=== PATIENT | female | born 1985 | race Caucasian/White ===

== ENCOUNTER 2020-01-18 20:25 | Inpatient (IN) | payer OTHER, SELFPAY ==
[2020-01-18] VITALS (23 sets, daily range): BP systolic 100–184; BP diastolic 55–110; PULSE 75–180; RESP 16–18; TEMP 35.8–36.9; O2SAT 84–99; BMI 44.6
[2020-01-18] MEDS: Lactated Ringers 1,000 ML 999 ML IV (21:00)
--- NOTE | 2020-01-18 21:37 | HP.PCM_ITS ---
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 Patient has had elevated blood pressures at the office where she received her ultrasound today but the sharepoint application developer states that she had normal pressures throughout her . She delivered her last one with preeclampsia and had a primary C- section for nonreassuring heart tones at that time. All previous vaginal deliveries prior to that. She has had intermittent headache and epigastric pain in the last couple of days. Ultrasound today showed fetus measuring 38 weeks 4 days and fluid level of 6 cm but with cord seen in all pockets. Minimal movement was seen on ultrasound today. The sharepoint application developer contacted my office at 5 PM and she was instructed to immediately bring the patient to the hospital for delivery due to severely elevated blood pressures and the decreased movement seen on ultrasound and oligohydramnios. Medical History: Medical History (Last Updated 01/18/20 @ 21:[address] Riri Cagle MD) delivery delivered O82 Preeclampsia O14.90 Allergies No Known Allergies Allergy (Verified 01/18/20 21:18) Alcohol: None Number of Fetus(es): 1 NST - FHR Rate Baby A Baseline: 140-150 Variability:: Minimal, Moderate Accelerations:: None Decelerations:: Early, Prolonged NST Reactive:: Non-Reactive FHR Category:: Category II Uterine Activity:: irregular History Past Pregnancies: Past Pregnancies 5 previous term 1 term secondary to NRFHTs and preeclampsia Expected Delivery Method: Repeat Section Review of Systems Constitutional: Denies: Fever, Malaise Eyes: Denies: Blurred vision, Vision Change HEENT: Reports: Head Aches. Denies: Visual Changes Cardiovascular: Denies: Chest Pain, Palpitations Respiratory: Denies: Cough, Shortness of Breath, Wheezing Gastrointestinal: Reports: Abdominal Pain, Nausea. Denies: Diarrhea, Vomiting Genitourinary: Denies: Dysuria, Hematuria Gynecological: Denies: Vaginal bleeding, Vaginal discharge Musculoskeletal: Denies: Joint Pain, Muscle pain Skin: Denies: Lesions, Rash Neurological: Denies: Blurred vision, Focal weakness, Headaches Psychiatric: Denies: Anxiety, Depression Endocrine: Denies: Heat/ Cold Intolerance Hematologic/ Lymphatic: Denies: Easy Bruising, Easy Bleeding Physical Exam Vitals: Vital Signs Temp Pulse BP Pulse Ox 98.5 F 96 184/110 H 97 01/18/20 21:35 01/18/20 21:35 01/18/20 21:28 01/18/20 21:35 General: Alert, Cooperative, No apparent distress HEENT: Atraumatic, Normocephalic. Negative for: Thyromegaly, Lymphadenopathy Cardiovascular: Regular rate Lungs: Normal air movement Abdomen: Soft, Non Tender, Gravid Neurological: Deep Tendon Reflexes 2+/4 and Symmetrical, Neuro grossly intact. Negative for: Clonus MATH AND SCIENCE DIVISION CHAIR: Normal external genitalia. Negative for: Vulvar lesions Estimated gestational size: Small for gestational age - if 42-43 weeks Presentation: Cephalic Cervix Dilation (cm): 0 Station: -3 Effacement (%): 0 Assessment/Plan All Active Problems Preeclampsia, severe (Acute) Post-term (Acute) Oligohydramnios (Acute) Previous delivery affecting (Acute) This is a 34 year-old, at 43 weeks gestational age presents with preeclampsia with severe features. start hypertensive protocol and magnesium sulfate, preeclampsia panel and no care labs drawn and sent. Counseled the patient regarding mode of delivery recommend repeat low transverse due to remote from delivery and unfavorable cervix. Category 2 heart rate tracing. Patient and agreeable no further questions.
[2020-01-18] MEDS: Sodium Citrate/Citric Acid 30 ML UDC PO (21:38)
[2020-01-18 21:45] LABS: Mucous, Urine 0 SEEN /hpf (<or=2+); White Blood Cells 0 SEEN /hpf (0-5)
[2020-01-18] MEDS: Magnesium Sulfate 4gm/100mL 4 GM/100 ML IV.SOLN. IV (21:47)
[2020-01-18 21:50] LABS: Hematocrit 39.6 % (37-47); Hemoglobin 13.6 g/dL (12.0-15.0); Mean Corp Hgb Conc 34.3 g/dL (32-36); Mean Corpuscular Hgb 30.9 pg (27.0-32.0); Mean Platelet Vol. 10.4 fl (6.2-12.0); Platelet Count 194 K/mm3 (150-450); RBC Distribution Width CV 13.7 % (11.6-14.6); RBC Distribution Width SD 44.8 fl (35.1-43.9); White Blood Count 11.8 K/mm3 (4.4-11.0)
[2020-01-18 21:51] LABS: Color, Urine Yellow (Yellow); Glucose, Dipstick Normal (Normal); Ketone-Dipstick 5 mg/dl (Negative); Leukocyte Esterase-Dipstick Negative /ul (Negative); Nitrite-Dipstick Negative (Negative); Occult Blood-Urine Negative /ul (Negative); Protein-Dipstick Negative (Negative); Specific Gravity, Urine 1.015 (1.002-1.030); Urine Bilirubin Dipstick Negative (Negative); Urine Clarity Sl. Cloudy (Clear); Urine Urobilinogen Normal (Normal); Urine pH 6.5 (5.0 - 8.0)
[2020-01-18] MEDS: Cefazolin 2 GM in 0.9% Normal Saline 100 ML IV (21:58)
[2020-01-18 22:01] LABS: Squamous Epithelial Cells - UA 0-5 SEEN /hpf (5-10)
[2020-01-18 22:02] LABS: Prothrombin Time (Protime)PT. 13.3 SECONDS (11.7-14.9)
[2020-01-18 22:03] LABS: AST(SGOT) 12 U/L (15-37); Alanine Aminotransfer ALT/SGPT 18 U/L (13-56); Creatinine, Serum 0.61 mg/dL (0.55-1.02); EST Glomerular Filtration Rate 120 mL/min (>60); Est Glom Filt Rate - Afr Amer 145 mL/min (>60); Estimated Creatinine Clearance 109.52 ml/min; Partial Thromboplast Time 27.4 Seconds (24.1-36.2); Uric Acid 3.3 mg/dL (2.6-6.0)
[2020-01-18 22:04] LABS: Bacteria RARE /hpf (None Seen); Red Blood Cells-Urine 0-5 SEEN /hpf (0-5); Yeast-Urine RARE /hpf (None Seen)
[2020-01-18] MEDS: Magnesium Sulfate 4gm/100mL 2 GM/50 ML IV.SOLN. IV (22:08)
[2020-01-18 22:11] LABS: Protein, Urine (Random) 10.1 mg/dL (<11.9); Protein:Creat Ratio 152 mg/g CRE (0-200)
[2020-01-18 22:12] LABS: Amphetamine Urine VISTA NEGATIVE (<1000 ng/mL); Barbiturate Urine VISTA NEGATIVE (< 200 ng/mL); Benzodiazepine Urine VISTA NEGATIVE (< 200 ng/mL); Cocaine Urine VISTA NEGATIVE (< 300 ng/mL); Ecstacy Urine VISTA NEGATIVE (< 500 ng/mL); Methadone Urine VISTA NEGATIVE (< 300 ng/mL); PCP Urine VISTA NEGATIVE (< 25 ng/mL); THC Urine VISTA NEGATIVE (< 50 ng/mL); Vista UDS pH Range 6
[2020-01-18] MEDS: Magnesium Sulfate 20 GM/500 ML BAG IV (22:19)
--- NOTE | 2020-01-18 22:46 | PCM.OPRPT ---
Problem List (1) Preeclampsia, severe Status: Acute (2) Post-term Status: Acute (3) Oligohydramnios Status: Acute (4) Previous delivery affecting Status: Acute Delivery Classification: DARINEL Final MEGHANA: 12/26/19 Gestational age: 43 Weeks and 2 Days measurement and verification engineer: Gali Garza Type of Anesthesia:: Spinal Special Medications: none Implants Used: none Date of Procedure: 01/18/20 Pre-Operative Diagnosis: preeclampsia with severe features postdates previous Post-Operative Diagnosis: same Description of Procedure: Spinal anesthesia was placed without difficulty. Cazares catheter was placed. The patient was placed in the dorsal supine position with leftward tilt. Patient was prepped and draped in the normal sterile fashion. Pfannenstiel skin incision was made with the scalpel and carried through to the underlying layer of fascia with the scalpel. Fascia was nicked in the midline and the incision extended laterally. The rectus bellies were dissected off superiorly and inferiorly with out complication both sharply and bluntly. The peritoneum was entered digitally. The incision was stretched and a low transverse uterine incision was made with the scalpel. The infant's head was delivered atraumatically followed by the anterior and posterior shoulders without complication the rest of the infant delivered. The cord was clamped and cut and the was handed off to awaiting nurse. The placenta was delivered spontaneously immediately following and was noted to be intact and have a three-vessel cord. The uterus was exteriorized cleared of all clots and debris, and the incision was closed in a double layer closure using #1 Monocryl. The ovaries and fallopian tubes were noted to be within normal limits. The uterus was returned to the maternal abdomen and gutters were cleared of all clots and debris. The peritoneum was closed with 3-0 Monocryl in a running fashion. Gloves were changed prior to fascial closure. Fascia was closed with 0 PDS in a running fashion. Subcutaneous tissue was copiously irrigated and the skin was closed with 3-0 Monocryl in a subcuticular fashion. Mepilex dressing was applied without complication. Patient was taken to recovery in stable condition. It was discussed with the patient that based on the clinical information obtained during this encounter, combined with her history, at this time I would recommend or vaginal for future deliveries if further pregnancies are desired. Amniotic Membrane Rupture Type: Artificial Amniotic Fluid Description: Clear Placenta Disposition: [facility] Drain: Cazares to straight drain Fluids Replaced: crystalloid Cord Entanglement: None Cord Vessel Description: 3 Vessels Esitmated Blood Loss (ml): 700 Gender: Male Delayed cord clamping: Yes Antibiotic Given: Ancef 2 grams IV x1 Complications: None - Admit VTE Documentation VTE Present on Admission: No VTE Mechan Device Prophylaxis: SCD's Multi Select Codes - Urinary/Genital Urinary/Genital CPT Codes: 98341 delivery+PP Care(MEMO)
[2020-01-18 22:47] LABS: Group B Strep DNA By PCR Negative (Negative); Internal Control PASS; Probe Check PASS; Specimen Processing Control PASS
[2020-01-18] MEDS: Oxytocin 30 units/NS 500 ml 30 UNITS/500 ML IV.SOLN 167 UNITS IV (23:15)
[2020-01-18] MEDS: miSOPROStol 200 MCG Tablet 1000 MCG RECTAL (23:18)
--- NOTE | 2020-01-18 23:47 | NURSING ---
2318 Moderate amts of lochia noted to peripad upon fundal check, orange sized clot expressed, into room, completed VE and expressed a couple small clots. Provider gave rectal cytotec, plan at this time is to continue with mag sulfate for 24 hours post op, pt to be on fluid restriction of 150cc/hr total PO and IV after recovery pitocin infused.
[2020-01-18 23:49] LABS: HIV - WCH Non-Reactive (Nonreactive); Hepatitis B Surface Antigen Non-Reactive (Nonreactive); Hepatitis C Antibody Non-Reactive (Nonreactive)
[2020-01-19] VITALS (62 sets, daily range): BP systolic 101–184; BP diastolic 54–110; PULSE 69–103; RESP 15–18; TEMP 35.8–36.8; O2SAT 92–100
[2020-01-19 00:08] LABS: Chlamydia Trachomatis by PCR Negative (Negative); Neisserai gonorrhoeae by PCR Negative (Negative); Probe Check PASS; Sample Adequacy Control PASS; Specimen Processing Control PASS
--- NOTE | 2020-01-19 00:13 | NURSING ---
called by this RN, updated on lochia and peripads weighed 563 ml since back in room from OR, vitals signs reviewed with provider. orders to send H/H, TXA, and hemabate. RN to call provider if Hemoglobin less then 10
[2020-01-19] MEDS: 0.9% Saline Lock 10 ML Syringe IV ×6 (00:15→12:52)
[2020-01-19 00:17] LABS: Rubella IgG 81.5 IU/mL
[2020-01-19] MEDS: Carboprost Tromethamine 250 MCG/ML Ampul IM ×2 (00:24→01:27)
[2020-01-19 00:31] LABS: Hematocrit 37.5 % (37-47); Hemoglobin 12.6 g/dL (12.0-15.0)
--- NOTE | 2020-01-19 00:35 | NURSING ---
see anesthesia record from 01/18/20 2153 to 2317 for vital signs and pt assessment
--- NOTE | 2020-01-19 01:22 | NURSING ---
called. updated on lochia, vital signs, H/H results and total peripad weight since back to room from OR 1,066ml. fundus remains firm, now 1 fingerbreath above Umbilicus, midline, adequate urine output. new orders for another dose of hemabate and RN to continue to monitor
[2020-01-19 02:26] LABS: Rapid Plasmin Reagin (RPR) NONREACTIVE (NONREACTIVE)
[2020-01-19] MEDS: Lactated Ringers 1,000 ML 50 ML IV ×2 (02:35→08:45)
--- NOTE | 2020-01-19 04:50 | NURSING ---
0330 peripad changed, moderate amts of lochia noted to pad, pericare provided 0425 peripad changed. moderate amts of lochia noted to peripad with small stringy clots noted. fundus initially boggy, firm after massage. vital signs stable. peripads weighted from 0330 and 0425 for 242ml 0435 fundus firm, midline, and 1 finger breadth above umbilicus. small lochia noted. will continue to monitor
[2020-01-19 05:44] LABS: Hematocrit 33.4 % (37-47); Hemoglobin 11.4 g/dL (12.0-15.0); Mean Corp Hgb Conc 34.1 g/dL (32-36); Mean Corpuscular Volume 90.8 fL (81-99); Mean Platelet Vol. 10.2 fl (6.2-12.0); Platelet Count 162 K/mm3 (150-450); RBC Distribution Width CV 13.8 % (11.6-14.6); RBC Distribution Width SD 45.9 fl (35.1-43.9); Red Blood Count 3.68 M/mm3 (4.2-5.4); White Blood Count 15.8 K/mm3 (4.4-11.0)
[2020-01-19 06:08] LABS: ALB/GLOB Ratio 0.7 RATIO (0.9-2.4); AST(SGOT) 12 U/L (15-37); Alanine Aminotransfer ALT/SGPT 18 U/L (13-56); Albumin, Serum 2.2 g/dL (3.2-5.0); Alkaline Phosphatase 88 U/L (45-117); Anion Gap 7 (5-15); BUN 10 mg/dL (7-18); BUN/Creat Ratio 15.7 RATIO (10-20); Calcium,Total 7.3 mg/dL (8.5-10.1); Chloride 107 mmol/L (98-107); Creatinine, Serum 0.64 mg/dL (0.55-1.02); EST Glomerular Filtration Rate 115 mL/min (>60); Est Glom Filt Rate - Afr Amer 139 mL/min (>60); Estimated Creatinine Clearance 104.39 ml/min; Globulin 3.2 g/dL (2.2-4.2); Glucose 118 mg/dL (74-106); Potassium 3.9 mmol/L (3.5-5.1); Protein, Total 5.4 g/dL (6.4-8.2); Sodium Level 137 mmol/L (136-145)
[2020-01-19] MEDS: Ketorolac 30 MG/ML Syringe IV ×2 (06:44→12:52)
[2020-01-19] MEDS: Lactated Ringers 500 ML 999 ML IV (08:10)
[2020-01-19] MEDS: Magnesium Sulfate 20 GM/500 ML BAG IV (08:11)
[2020-01-19] MEDS: Enoxaparin 40 MG/0.4 ML Syringe SC ×2 (09:19→21:56)
[2020-01-19] MEDS: Ondansetron 4 MG/2 ML Vial IV (10:12)
--- NOTE | 2020-01-19 17:00 | PCM.PN.OB ---
Patient Problems: Active and Suspected Problems Preeclampsia, severe (Acute) Post-term (Acute) Oligohydramnios (Acute) Previous delivery affecting (Acute) Subjective: doing well no complaints pain controlled no CP SOB N V ambulating well tolerating po lochia moderate, going well - Physical Exam Vitals/I&O's: Vital Signs Temp Pulse Resp BP Pulse Ox 97.6 F L 74 15 111/65 97 01/19/20 15:30 01/19/20 16:30 01/19/20 16:30 01/19/20 15:30 01/19/20 16:30 Oxygen Delivery Method Room Air Weight: 251 lb 12.286 oz Body Mass Index (BMI) 44.6 Intake and Output for Last 24 Hours 01/17/20 01/18/20 01/19/20 23:59 23:59 23:59 Intake Total 1184.97 / 1184.97 3147.93 / 3147.93 Output Total 400 / 400 1622 / 1622 Balance 784.97 / 784.97 1525.93 / 1525.93 General: Alert, Oriented x3 Laboratory Results 01/18/20 21:05: Rubella IgG Antibody 81.5 01/18/20 21:05: RPR NONREACTIVE 01/18/20 21:05: Blood Type A NEGATIVE, Antibody Screen NEGATIVE 01/18/20 21:05: WBC 11.8 H, RBC 4.40, Hgb 13.6, Hct 39.6, MCV 90.0, MCH 30.9, MCHC 34.3, RDW Std Deviation 44.8 H, RDW Coeff of Kendell 13.7, Plt Count 194, MPV 10.4 01/18/20 21:05: PT 13.3, INR 1.0, APTT 27.4 01/18/20 21:05: Creatinine 0.61, Estim Creat Clear Calc 109.52, Est GFR (MDRD) Af Amer 145, Est GFR (MDRD) Non-Af 120, Uric Acid 3.3, AST 12 L, ALT 18 01/18/20 21:05: Urine Opiates Screen NEGATIVE, Urine Methadone Screen NEGATIVE, Ur Barbiturates Screen NEGATIVE, Ur Phencyclidine Scrn NEGATIVE, Ur Amphetamines Screen NEGATIVE, U Methamphetamin-MDMA NEGATIVE, U Benzodiazepines Scrn NEGATIVE, Urine Cocaine Screen NEGATIVE, U Cannabinoids Screen NEGATIVE, Ur Drug Screen Comment 01/18/20 21:05: Hep Bs Antigen Non-Reactive, Hepatitis C Antibody Non-Reactive, HIV 1&2 Antibody Non-Reactive 01/18/20 21:05: Chlam trachomat DNA PCR Negative, N.gonorrhoeae DNA (PCR) Negative 01/18/20 21:05: Group B Strep DNA Negative, Specimen Comment Not Reportable 01/18/20 21:05: Urine Color Yellow, Urine Clarity Sl. Cloudy, Urine pH 6.5, Ur Specific Milton 1.015, Urine Protein Negative, Urine Glucose (UA) Normal, Urine Ketones 5 H, Urine Occult Blood Negative, Urine Nitrite Negative, Urine Bilirubin Negative, Urine Urobilinogen Normal, Ur Leukocyte Esterase Negative, Urine RBC 0-5 SEEN, Urine WBC 0 SEEN, Ur Squamous Epith Cells 0-5 SEEN, Urine Bacteria RARE, Urine Mucus 0 SEEN, Urine Yeast RARE 01/18/20 21:05: U Random Total Protein 10.1, Urine Creatinine 66.60, Protein/Creatinin Ratio 152 01/19/20 00:15: Hgb 12.6, Hct 37.5 01/19/20 00:15: Screen NEGATIVE, Baby's Blood Type A POSITIVE, Baby's WYATT NEGATIVE 01/19/20 05:29: WBC 15.8 H, RBC 3.68 L, Hgb 11.4 L, Hct 33.4 L, MCV 90.8, MCH 31.0, MCHC 34.1, RDW Std Deviation 45.9 H, RDW Coeff of Kendell 13.8, Plt Count 162, MPV 10.2 01/19/20 05:29: Sodium 137, Potassium 3.9, Chloride 107, Carbon Dioxide 23.0, Anion Gap 7, BUN 10, Creatinine 0.64, Estim Creat Clear Calc 104.39, Est GFR (MDRD) Af Amer 139, Est GFR (MDRD) Non-Af 115, BUN/Creatinine Ratio 15.7, Glucose 118 H, Calcium 7.3 L, Total Bilirubin 0.30, AST 12 L, ALT 18, Alkaline Phosphatase 88, Total Protein 5.4 L, Albumin 2.2 L, Globulin 3.2, Albumin/Globulin Ratio 0.7 L Current Medications Acetaminophen (Tylenol) 1,000 mg PO Q8H PRN PRN PRN Reason: Pain Score 1-3/10 Bisacodyl (Dulcolax) 10 mg RECTAL UD PRN PRN Reason: If no BM Diphenhydramine HCl (Benadryl) 25 mg PO Q6H PRN PRN PRN Reason: ITCHING Stop: 01/20/20 02:28 Enoxaparin Sodium (Lovenox) 40 mg SC BID [facility] Last Admin: 01/19/20 09:19 Dose: 40 mg Documented by: Hydralazine HCl (Apresoline Iv) 10 mg IV X1 PRN PRN Reason: Elevated BP Hydrocortisone (Hytone) 1 applic TOPICAL TID PRN PRN; Protocol PRN Reason: Discomfort Magnesium Sulfate (20gm/500ml) 20 gm in 500 mls @ 50 mls/hr IV .Q10H [facility] Last Infusion: 01/19/20 16:30 Dose: 2 gm/hr, 50 mls/hr Documented by: Lactated Ringer's () 1,000 mls @ 100 mls/hr IV .Q10H [facility] Last Infusion: 01/19/20 13:23 Dose: 25 mls/hr Documented by: Naloxone HCl 4 mg/ Dextrose 504 mls @ 0 mls/hr IV .Q0M PRN; Protocol PRN Reason: Respiratory depression Ketorolac Tromethamine (Toradol (Bkc)) 30 mg IV Q6 [facility] Stop: 01/21/20 00:01 Last Admin: 01/19/20 12:52 Dose: 30 mg Documented by: Labetalol HCl (Trandate) 20 mg IV X1 PRN PRN Reason: Elevated BP Labetalol HCl (Trandate) 40 mg IV X1 PRN PRN Reason: Elevated BP Labetalol HCl (Trandate) 80 mg IV X1 PRN PRN Reason: Elevated BP Nalbuphine HCl (Nubain) 5 mg IV Q3H PRN PRN PRN Reason: ITCHING Stop: 01/20/20 02:28 Naloxone HCl (Narcan) 0.02 mg IV Q1M PRN PRN Reason: RR <10 and pt unresponsive Naproxen (Naprosyn) 250 - 500 mg PO Q8H PRN PRN PRN Reason: Pain Score 1-3/10 Ondansetron HCl (Zofran) 4 mg IV Q4H PRN PRN PRN Reason: Nausea Last Admin: 01/19/20 10:12 Dose: 4 mg Documented by: Oxycodone HCl (Oxyir) 5 - 10 mg PO Q4H PRN PRN PRN Reason: Pain Score 4-10/10 Prochlorperazine Edisylate (Compazine Iv) 10 mg IV Q6H PRN PRN PRN Reason: NAUSEA Senna/Docusate Sodium (Senokot-S, Katerin-Colace) 1 - 2 tablet PO DAILY PRN PRN Reason: Constipation Simethicone (Mylicon) 80 mg PO PCHS PRN PRN Reason: Indigestion/stomach pain Sodium Chloride () 5 - 15 ml IV UD PRN PRN Reason: SALINE FLUSH Last Admin: 01/19/20 12:52 Dose: 10 ml Documented by: Medical Necessity - Tobacco Use Smoking Status: Never smoker Assessment/Plan All Active Problems Preeclampsia, severe (Acute) Post-term (Acute) Oligohydramnios (Acute) Previous delivery affecting (Acute) s/p LTCS PPD # 1 1. routine post care 2. breast feeding- support given 3. rh negative 4. discussed preeclampsia monitoring, dc magnesium after 24 hours
--- NOTE | 2020-01-19 19:48 | NURSING ---
193 pt oob up to chair and walking around in room; pt gait steady; bed linen changed; rupa jordan dc'ed
[2020-01-19] MEDS: Senna/Docusate Sodium 1 Tablet PO (21:56)
[2020-01-20 01:22] VITALS: BP 117/64; PULSE 80
[2020-01-20] MEDS: Naproxen 250 MG Tablet PO ×2 (01:32→13:49)
[2020-01-20 01:34] VITALS: BP 117/64; PULSE 80; RESP 16; TEMP 36.7
[2020-01-20 08:40] VITALS: BP 121/70; PULSE 80; RESP 18; TEMP 36.9
[2020-01-20 08:49] VITALS: BP 121/70; PULSE 80; O2SAT 83
[2020-01-20] MEDS: Enoxaparin 40 MG/0.4 ML Syringe SC (10:41)
--- NOTE | 2020-01-20 11:08 | PCM.PN.OB ---
Patient Problems: Active and Suspected Problems Preeclampsia, severe (Acute) Post-term (Acute) Oligohydramnios (Acute) Previous delivery affecting (Acute) Subjective: doing well no complaints pain controlled no CP SOB N V ambulating well tolerating po lochia moderate, going well - Physical Exam Vitals/I&O's: Vital Signs Temp Pulse Resp BP Pulse Ox 98.4 F 80 18 121/70 H 83 01/20/20 08:40 01/20/20 08:49 01/20/20 08:40 01/20/20 08:49 01/20/20 08:49 Oxygen Delivery Method Room Air Weight: 251 lb 12.286 oz Body Mass Index (BMI) 44.6 Intake and Output for Last 24 Hours 01/18/20 01/19/20 01/20/20 23:59 23:59 23:59 Intake Total 1184.97 / 1184.97 3300.85 / 3300.85 Output Total 400 / 400 2182 / 2182 250 / 250 Balance 784.97 / 784.97 1118.85 / 1118.85 -250 / -250 Current Medications Acetaminophen (Tylenol) 1,000 mg PO Q8H PRN PRN PRN Reason: Pain Score 1-3/10 Bisacodyl (Dulcolax) 10 mg RECTAL UD PRN PRN Reason: If no BM Enoxaparin Sodium (Lovenox) 40 mg SC BID [facility] Last Admin: 01/20/20 10:41 Dose: 40 mg Documented by: Hydralazine HCl (Apresoline Iv) 10 mg IV X1 PRN PRN Reason: Elevated BP Hydrocortisone (Hytone) 1 applic TOPICAL TID PRN PRN; Protocol PRN Reason: Discomfort Naloxone HCl 4 mg/ Dextrose 504 mls @ 0 mls/hr IV .Q0M PRN; Protocol PRN Reason: Respiratory depression Labetalol HCl (Trandate) 20 mg IV X1 PRN PRN Reason: Elevated BP Labetalol HCl (Trandate) 40 mg IV X1 PRN PRN Reason: Elevated BP Labetalol HCl (Trandate) 80 mg IV X1 PRN PRN Reason: Elevated BP Naloxone HCl (Narcan) 0.02 mg IV Q1M PRN PRN Reason: RR <10 and pt unresponsive Naproxen (Naprosyn) 250 - 500 mg PO Q8H PRN PRN PRN Reason: Pain Score 1-3/10 Last Admin: 01/20/20 01:32 Dose: 500 mg Documented by: Ondansetron HCl (Zofran) 4 mg IV Q4H PRN PRN PRN Reason: Nausea Last Admin: 01/19/20 10:12 Dose: 4 mg Documented by: Oxycodone HCl (Oxyir) 5 - 10 mg PO Q4H PRN PRN PRN Reason: Pain Score 4-10/10 Prochlorperazine Edisylate (Compazine Iv) 10 mg IV Q6H PRN PRN PRN Reason: NAUSEA Senna/Docusate Sodium (Senokot-S, Katerin-Colace) 1 - 2 tablet PO DAILY PRN PRN Reason: Constipation Last Admin: 01/19/20 21:56 Dose: 1 tablet Documented by: Simethicone (Mylicon) 80 mg PO PCHS PRN PRN Reason: Indigestion/stomach pain Last Admin: 01/20/20 06:16 Dose: 80 mg Documented by: Sodium Chloride () 5 - 15 ml IV UD PRN PRN Reason: SALINE FLUSH Last Admin: 01/19/20 12:52 Dose: 10 ml Documented by: Medical Necessity - Tobacco Use Smoking Status: Never smoker Assessment/Plan All Active Problems Preeclampsia, severe (Acute) Post-term (Acute) Oligohydramnios (Acute) Previous delivery affecting (Acute) s/p LTCS PPD # 2 1. routine post care 2. breast feeding- support given 3. rh negative 4. discussed preeclampsia monitoring, dc'ed magnesium after 24 hours
--- NOTE | 2020-01-20 11:10 | DCINST_ITS ---
Discharge Diet: No Restrictions Discharge Activity: May Not Drive - for 2 weeks, May not drive while taking narcotic pain medications., May Shower, May Take a Tub Bath - in 7 days May resume sexual activity in: 4-6 weeks Lifting Restrictions: 20 pounds Additional Activity Instructions:: Nothing in the vagina for 4-6 weeks. You may return to work/school in 6 weeks. Call your doctor if your incision/area has: Continuous Slow Oozing, Sudden Increased Bleeding, Increased Pain/ Swelling, Increased Redness, Foul Smelling Discharge Call your doctor if you observe: Fever of 101 or Higher, Using more than one pad per hour - for 2 hours Suture Line Care: Avoid Pulling/Pushing, Avoid Pinching/Bending Cleanse incision/area with: Keep Dressing Clean & Dry Additional Instructions: If you experience any of the following, contact your healthcare provider. * Bleeding that soaks a pad every hour for 2 hours * Fever 100.4 or higher * Unrelieved incision or abdominal pain * Swelling, redness, discharge or bleeding from your incision or episiotomy site * Your incision begins to separate * Problems urinating (including inability to urinate or burning while urinating). * Visual changes * Severe headache * Flu-like symptoms * Pain or redness in one of both of your breasts * Pain, warmth, tenderness or swelling in your legs, especially the calf area * Frequent nausea and vomiting * Symptoms of depression or anxiety If you experience any of the following, call 911 or go to the nearest Emergency Room. * Chest pain * Problems breathing * Seizure activity * Partial or complete paralysis of a body part, slurred speech, weakness or drooping of the face, or a sudden inability to walk or hold your balance Allergies/Adverse Reactions: Allergies No Known Allergies Allergy (Verified 01/18/20 21:18) Medications to take at Discharge Vits [Prenatabs FA] 1 tab PO DAILY 01/19/20 Naproxen [Naprosyn] 250 - 500 mg PO Q8H PRN PRN #30 tab 01/20/20 The following prescriptions were given: Naproxen [Naprosyn] 250 - 500 mg PO Q8H PRN PRN #30 tab PRN Reason: MILD PAIN Transmission Status: Pending to [facility] Follow-Up: Call to make an appointment with your doctor for an incision check in 1-2 weeks. You will also need a 6 week post- follow up appointment. Test results from this visit will be discussed in further detail at your follow- up appointment, if applicable. Please Follow Up With: Riri Cagle MD - Call to make an appointment for an incision check in 1-2 [phone] When: You will need a post- check in 6 weeks. Primary Care Physician: Stu Zimmer, [Primary Care Provider] -
[2020-01-20 13:40] VITALS: BP 144/78; PULSE 86; RESP 16; TEMP 36.7
[2020-01-20 13:48] VITALS: BP 144/78; PULSE 86
== END 2020-01-20 14:10 | disposition home or self-care (01) | DRG 788 ==
PROVIDERS: Admitting Provider Obstetrics & Gynecology; PCP Family Medicine; Visit Provider Obstetrics & Gynecology
DX: O34.219 Maternal care for unspecified type scar from previous cesarean delivery (principal); O48.0 Post-term pregnancy; Z37.0 Single live birth; O14.14 Severe pre-eclampsia complicating childbirth; Z3A.42 42 weeks gestation of pregnancy
CPT/HCPCS: 59025; 59050; 80053; 80307; 81001; 82565; 82570; 84156; 84450; 84460; 84550; 85014; 85018; 85027; 85461; 85610; 85730; 86592; 86703; 86762; 86803; 86850; 86900; 86901; 87081; 87340; 87491; 87591; 87653; 90384; 99218; J7120; A4216; G0378; J2405; J2790

== ENCOUNTER → 2021-02-21 09:11 | Outpatient (CLI) | payer SELFPAY ==
[2021-02-21 08:02] VITALS: BMI 39.6
[2021-02-21 09:40] LABS: Absolute Lymphocyte Count 2.06 X10^3/uL (0.83-4.51); Absolute Neutrophil Count 6.8 X10^3/uL (2.0-7.7); Basophil# 0.06 X10^3/uL; Basophil% 0.6 % (0-1); Eosinophil# 0.09 X10^3/uL; Eosinophils% 0.9 % (0-5); Hematocrit 43.6 % (37-47); Hemoglobin 14.5 g/dL (12.0-15.0); Lymphocyte # 2.06 X10^3/ul (0.83-4.51); Lymphocyte % 21.7 % (19-41); Mean Corp Hgb Conc 33.3 g/dL (32-36); Mean Corpuscular Hgb 28.7 pg (27.0-32.0); Mean Corpuscular Volume 86.2 fL (81-99); Mean Platelet Vol. 9.5 fl (6.2-12.0); Monocyte# 0.49 X10^3/uL; Monocyte% 5.2 % (0-10); NRBC Flagged by Analyzer 0 % (0-5); Neutrophil # 6.77 X10^3/uL (2.7-7.7); Neutrophil % 71.5 % (47-70); Platelet Count 256 K/mm3 (150-450); RBC Distribution Width CV 12.3 % (11.6-14.6); RBC Distribution Width SD 38.5 fl (35.1-43.9); Red Blood Count 5.06 M/mm3 (4.2-5.4); White Blood Count 9.5 K/mm3 (4.4-11.0)
[2021-02-21 10:05] LABS: ALB/GLOB Ratio 0.9 RATIO (0.9-2.4); AST(SGOT) 31 U/L (15-37); Alanine Aminotransfer ALT/SGPT 53 U/L (13-56); Albumin, Serum 3.6 g/dL (3.2-5.0); Alkaline Phosphatase 50 U/L (45-117); Anion Gap 5 (5-15); BUN 10 mg/dL (7-18); BUN/Creat Ratio 14.7 RATIO (10-20); Calcium,Total 9.1 mg/dL (8.5-10.1); Chloride 106 mmol/L (98-107); Creatinine, Serum 0.68 mg/dL (0.55-1.02); EST Glomerular Filtration Rate 105 mL/min (>60); Est Glom Filt Rate - Afr Amer 127 mL/min (>60); Globulin 3.8 g/dL (2.2-4.2); Glucose 166 mg/dL (74-106); Glucose Challenge Gest 1H 50g 166 mg/dL (70-140); Potassium 3.5 mmol/L (3.5-5.1); Protein, Total 7.4 g/dL (6.4-8.2); Sodium Level 136 mmol/L (136-145)
[2021-02-21 11:36] LABS: Rubella IgG Reactive (Nonreactive)
[2021-02-21 18:04] LABS: Creatinine, Urine (random) < 13.00 mg/dL (NO RANGE EST.); Protein, Urine (Random) < 6.0 mg/dL (<11.9)
[2021-02-26 17:08] LABS: HPV APTIMA, High Risk Negative (Negative)
== END ==
PROVIDERS: PCP Family Medicine; Referring Provider Obstetrics & Gynecology; Visit Provider Obstetrics & Gynecology
DX: O14.10 Severe pre-eclampsia, unspecified trimester (principal); O99.210 Obesity complicating pregnancy, unspecified trimester; Z12.4 Encounter for screening for malignant neoplasm of cervix; Z3A.00 Weeks of gestation of pregnancy not specified
CPT/HCPCS: 36415; 80053; 82570; 82950; 84156; 85025; 86762; 86850; 86900; 86901; 87086; 87088; 87624; 88175; G0145

== ENCOUNTER → 2021-02-25 06:39 | Outpatient (CLI) | payer OTHER, SELFPAY ==
[2021-02-21 08:02] VITALS: BMI 39.6
[2021-02-25 08:10] LABS: Glucose GTT-Gestation. Fasting 118 mg/dL (<105)
[2021-02-25 08:38] LABS: Glucose GTT-Gestational 1 Hr 207 mg/dL (<190)
[2021-02-25 09:58] LABS: Glucose GTT-Gestational 2 Hr 212 mg/dL (<165)
[2021-02-25 10:48] LABS: Glucose GTT-Gestational 3 Hr 137 L (<145)
== END ==
LOC: LAB 06:41
PROVIDERS: PCP Family Medicine; Referring Provider Obstetrics & Gynecology; Visit Provider Obstetrics & Gynecology
DX: Z13.1 Encounter for screening for diabetes mellitus (principal)
CPT/HCPCS: 36415; 82951; 82952

== ENCOUNTER → 2021-05-21 08:13 | Outpatient (CLI) | payer SELFPAY ==
[2021-04-15 08:31] VITALS: BMI 39.6
[2021-05-01 09:16] VITALS: BMI 39.6
--- NOTE | 2021-05-21 08:17 | US_ITS ---
STUDY: SECOND AND THIRD TRIMESTER OBSTETRICAL ULTRASOUND REASON FOR EXAM: Female, 36 years old anatomy scan LMP: 12/26/2020. TECHNIQUE: Transabdominal TECHNICAL QUALITY: Adequate. PRIOR ULTRASOUND: None. FINDINGS: There is a single intrauterine fetus. The fetus is in a cephalic presentation. There is demonstrated cardiac activity with a heart rate of 166 bpm. There is a normal amniotic fluid volume. The largest amniotic fluid pocket measures 3.1 cm x 3.9 cm. The amniotic fluid index (YANETH) is within normal limits. The placenta is anterior in location and is not low lying. There are Grade 1 placental changes. The cervix measures 6.3 cm in length. The adnexal regions are not visualized. BIOMETRY: BPD: 5.3 cm: 22 weeks, 0 days HC: 19.99 cm: 22 weeks, 1 days AC: 17.28 cm: 21 weeks, 1 days FL: 3.48 cm: 20 weeks, 6 days CI: 77.7% FL/BPD: 65.8% FL/HC: FL/AC: 20.2% HC/AC: 1.16 age by current US: 21 weeks, 4 days. MEGHANA by current US: 09/27/2021. Estimated weight: 450 grams, +/- 67 grams, 87.8 %. Age by LMP: 21 weeks, 4 days. MEGHANA by LMP: 09/27/2021. ANATOMY: Gender: Male Cranium: Normal lateral ventricles. Normal choroid plexus. Normal cerebellum. Normal cisterna magna. Normal face, nose and lips. Chest: Normal 4-chamber heart. Abdomen/Pelvis: Normal diaphragm. Normal stomach. Normal abdominal wall. Normal cord insertion. Normal 3 vessel cord. Normal kidneys. Normal bladder. Spine: Normal cervical spine. Normal thoracic spine. Normal lumbar spine. Normal sacrum. Extremities: Normal bilateral upper extremities. Normal bilateral lower extremities. IMPRESSION: Single live intrauterine gestation with a mean gestational age of 21 weeks and 4 days. Electronically Signed: Rito Torres MD at 13:48 EDT , Service support , STUDY: FIRST TRIMESTER OBSTETRICAL ULTRASOUND REASON FOR EXAM: Female, 36 years old . Cervical length assessment. LMP: 12/26/2020 TECHNIQUE: Transvaginal TECHNICAL QUALITY: Adequate. PRIOR ULTRASOUND: None. FINDINGS: Transvaginal examination for assessment of the cervical length. The cervix measures 6.3 cm. US/OB Anatomy Scan IMPRESSION: The cervix measures 6.3 cm. Electronically Signed: Rito Torres MD at 13:49 EDT , Service support ,
== END ==
PROVIDERS: PCP Family Medicine; Referring Provider Nurse Practitioner Women's Health; Visit Provider Nurse Practitioner Women's Health
DX: Z34.90 Encounter for supervision of normal pregnancy, unspecified, unspecified trimester (principal)
CPT/HCPCS: 76805; 76817

== ENCOUNTER 2021-08-07 12:25 | Outpatient (CLI) | payer SELFPAY ==
[2021-08-07] VITALS (52 sets, daily range): BP systolic 140–173; BP diastolic 83–107; PULSE 83–101; RESP 16; TEMP 36.7; O2SAT 93–100; BMI 36.6
--- NOTE | 2021-08-07 12:36 | US_ITS ---
STUDY: SECOND AND THIRD TRIMESTER OBSTETRICAL ULTRASOUND -- Limited REASON FOR EXAM: Female, 36 years old routine survey LMP: 12/26/2020 TECHNIQUE: Transabdominal TECHNICAL QUALITY: Adequate. PRIOR ULTRASOUND: 05/21/2021 FINDINGS: There is a single intrauterine fetus. The fetus is in a cephalic presentation. There is demonstrated cardiac activity with a heart rate of 153 bpm. There is a normal amniotic fluid volume. The largest amniotic fluid pocket measures 3.9 cm. The amniotic fluid index (YANETH) is 7.7 cm. The placenta is anterior in location and is not low lying. There are Grade 1 placental changes. The cervix measures 4.4 cm in length. The adnexal regions are not visualized. BIOMETRY: BPD: 8.5 cm: 34 weeks, 0 days HC: 31.5 cm: 35 weeks, 2 days AC: 31.2 cm: 35 weeks, 0 days FL: 6.2 cm: 32 weeks, 2 days age by current US: 34 weeks, 1 days. MEGHANA by current US: 09/17/2021. Estimated weight: 2388 grams, +/- 358 grams, 95 %. age by prior US: 21 weeks, 4 days. MEGHANA by prior US: 09/27/2021. Age by LMP: 32 weeks, 5 days. MEGHANA by LMP: 11/27/2020. US/OB Limited With Biometrics IMPRESSION: Single live intrauterine at 34 weeks, 1 day by current ultrasound with MEGHANA of 09/17/2021. Heart rate at 153 bpm. No suspicious sonographic findings, YANETH is low normal. MEGHANA is current study measures 10 days earlier than on the previous study. Electronically Signed: Collin Yates MD at 16:55 EDT , Service support ,
[2021-08-07] MEDS: Labetalol (Prefilled) 20 MG/4 ML IV (14:46)
[2021-08-07] MEDS: Magnesium Sulfate 4gm/100mL 4 GM/100 ML IV.SOLN. IV (14:46)
[2021-08-07 14:59] LABS: Hematocrit 36.6 % (37-47); Hemoglobin 12.9 g/dL (12.0-15.0); Mean Corp Hgb Conc 35.2 g/dL (32-36); Mean Corpuscular Hgb 31.3 pg (27.0-32.0); Mean Corpuscular Volume 88.8 fL (81-99); Mean Platelet Vol. 9.7 fl (6.2-12.0); Platelet Count 242 K/mm3 (150-450); RBC Distribution Width CV 13.1 % (11.6-14.6); RBC Distribution Width SD 42.3 fl (35.1-43.9); Red Blood Count 4.12 M/mm3 (4.2-5.4); White Blood Count 10.9 K/mm3 (4.4-11.0)
[2021-08-07 15:09] LABS: Partial Thromboplast Time 28.9 Seconds (24.1-36.2); Prothrombin Time (Protime)PT. 12.3 SECONDS (11.7-14.9)
[2021-08-07] MEDS: Magnesium Sulfate 4gm/100mL 2 GM/50 ML IV.SOLN. IV (15:10)
[2021-08-07] MEDS: Magnesium Sulfate 20 GM/500 ML BAG IV (15:20)
[2021-08-07 15:24] LABS: AST(SGOT) 19 U/L (15-37); Alanine Aminotransfer ALT/SGPT 21 U/L (13-56); Creatinine, Serum 0.64 mg/dL (0.55-1.02); EST Glomerular Filtration Rate 112 mL/min (>60); Est Glom Filt Rate - Afr Amer 135 mL/min (>60); Estimated Creatinine Clearance 111.45 ml/min; LDH 217 U/L (84-246); Uric Acid 2.9 mg/dL (2.6-6.0)
[2021-08-07 15:49] LABS: Protein, Urine (Random) < 6.0 mg/dL (<11.9)
[2021-08-07] MEDS: NIFEdipine 30 MG Tablet PO (16:48)
[2021-08-07] MEDS: Betamethasone/Betamethasone 30 MG/5 ML Vial 12 MG IM (16:48)
--- NOTE | 2021-08-07 16:51 | OB.TRI.HP_ITS ---
HPI - General HPI Narrative RADHA BLANKENSHIP, is a 36 F G9, P7 at 32 weeks gestation with a history of gestational diabetes, history of x2, and chronic hypertension, who presents with elevated blood pressures and headache. Reports headache has been present since this morning and is dull and aching. Denies vision changes, chest pain, shortness of breath. Maternal Data Information MEGHANA Calculator Estimated Delivery Date Method Current WG Current Estimate 10/02/21 LMP (Certain) 32w 0d PFSH PFSH Medical History delivery delivered Preeclampsia Home Medications calcium carb-magnesium oxide-vit C 400 mg calcium-117 mg-167 mg tablet tablet PO 02/21/21 [History Last Taken Unknown] nifedipine 30 mg tablet,extended release 24 hr 30 mg PO DAILY #30 tablet 02/21/21 [Rx Last Taken Unknown] vitamin#30 30 mg iron-10 mg iron-folic acid 1 mg-omg3 capsule cap PO 02/21/21 [History Last Taken Unknown] blood sugar diagnostic #100 each 02/25/21 [Rx Last Taken Unknown] blood-glucose meter #1 each 02/25/21 [Rx Last Taken Unknown] insulin NPH isoph U-100 human 100 unit/mL (3 mL) subcutaneous pen 25 unit SUBCUT QAM 05/21/21 [History Last Taken Unknown] Allergy/AdvReac Type Severity Reaction Status Date / Time No Known Allergies Allergy Verified 08/07/21 14:21 Family History Mother Diabetes Surgical History delivery delivered Social History Smoking Status: Never smoker alcohol intake: never substance use type: does not use caffeine: Yes what type of physical activity do you participate in: walking seatbelt use: always do you feel safe at home: Yes additional social history: [employer] work History 9 Elective abortions Hx Para 7 Spontaneous abortions 1 Hx # Term Pregnancies Ectopic pregnancies Hx # Pregnancies Multiple births # of living children 7 Past Pregnancies Del. Date Name GA/Weeks Outcome Route Bth Weight Infant Gen Labor Lgth Anesthesia Del Locatn Provider FOB Unknown 2009 Marielle live - full term Unknown 2010 Kristin live - full term Unknown 2013 Loulou live - full term Unknown 2014 Jennifer live - full term Unknown 2016 Albert live - full term Unknown 2018 Sandra live - full term Unknown 2019 Essence live - full term Visit Details Expected Delivery Route/Plan RLTCS and BTL with SM Plans covid vaccine: declined flu vaccine: declined tdap vaccine: declined rhogam: needs to get on 08/07 LARC form signed: [] Problem list reviewed and updated with the most current plan of care details and appropriate orders placed. Relevant counseling for the gestational age provided. Continue routine care and follow up unless otherwise noted in visit notes/problem list details OB Flowsheet Initial Weight: 238 lb Date -?-?-?-?-?-?-?-?-?-?-?-?- EGA Weight BP Urine Prot -?-?-?-?-?-?-?-?-?-?-?-?- Glucose FHR FuHt Pres Dilation -?-?-?-?-?-?-?-?-?-?-?-?- Effaced St Visit Note 02/21/21 -?-?-?-?-?-?-?-?-?-?-?--?- 8w 1d 238 lb (+0 oz) 154/100 -?-?-?-?-?-?-?-?-?-?-?-?- 175 -?-?-?-?-?-?-?-?-?-?-?-?- SM- CRL cons wit h LMP 1.75cm 03/21/21 -?-?-?-?-?-?-?-?-?-?-?-?- 12w 1d 231 lb 6 oz (-6 lb 10 oz) 148/90 Negative -?-?-?-?-?-?-?-?-?-?-?-?- Negative 160 -?-?-?-?-?-?-?-?-?-?-?-?- SM- reviewed BS and patient lost bps but nl per patient 04/15/21 -?-?-?-?-?-?-?-?-?-?-?-?- 15w 5d 225 lb 6 oz (-12 lb 10 oz) 136/80 Negative -?-?-?-?-?-?-?-?-?-?-?-?- Negative 150 -?-?-?-?-?-?-?-?-?-?-?-?- MH-No VB, LOF. BP WNL, good glucose reading, manage with Dr Claudio. Order anatomy 05/21/21 -?-?-?-?-?-?-?-?-?-?-?-?- 20w 6d 223 lb (-15 lb) 118/88 Negative -?-?-?-?-?-?-?-?-?-?-?--?- Negative 157 -?-?-?-?-?-?-?-?-?-?-?-?- MH-No Vb, LOF. G ood FM. Anatomy US today. States glucose ok/on insulin with Dr Claudio. 06/17/21 -?-?-?-?-?-?-?-?-?-?-?-?- 24w 5d 226 lb (-12 lb) 144/90 Negative -?-?-?-?-?-?-?-?-?-?-?-?- Negative 150 24 -?-?-?-?-?-?-?-?-?-?-?-?- GP - no LOF, VB, DFM, ctx. Discussed possible tubal ligation - considering RCD w/BTL 07/19/21 -?-?-?-?-?-?-?-?-?-?-?-?- 29w 2d 230 lb 6 oz (-7 lb 10 oz) 132/88 Negative -?-?-?-?-?-?-?-?-?-?-?-?- Negative 155 29 -?-?-?-?-?-?-?-?-?-?-?-?- GP - no LOF, VB, DFM, ctx. LARC form signed. Adamantly declines COVID vaccine. Discussed CBC - undecided on if willing to receive. 08/01/21 -?-?-?-?-?-?-?-?-?-?-?-?- 31w 1d 232 lb 2 oz (-5 lb 14 oz) 148/88 Negative -?-?-?-?-?-?-?-?-?-?-?-?- Negative 140 33 -?-?-?-?-?-?-?-?-?-?-?-?- SM- no vb lof go od fm no regular ctx discussed testing, requesting ability to do once weekly testing, plan 2x daily kick counts, once daily bp checks, BS controlled, plan weekly NST/YANETH and deliver at 38 SM- no vb lof good fm no reg ular ctx discussed testing, requesting ability to do once weekly testing, plan 2x daily kick counts, once daily bp checks, BS controlled, plan weekly NST/YANETH and deliver at 38. 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 Sent to triage for labs and BP monitoring ROS Eyes Eyes: Reports systems reviewed and no addt'l complaints, except as documented ENT HEENT: Reports systems reviewed and no addt'l complaints, except as documented Cardiovascular Cardiovascular: Reports systems reviewed and no addt'l complaints, except as documented Respiratory/Chest Respiratory/Chest: Reports systems reviewed and no addt'l complaints, except as documented Gastrointestinal Gastrointestinal: Reports systems reviewed and no addt'l complaints, except as documented Genitourinary Genitourinary: Reports systems reviewed and no addt'l complaints, except as documented Musculoskeletal Musculoskeletal: Reports systems reviewed and no addt'l complaints, except as documented Integumentary Integumentary: Reports systems reviewed and no addt'l complaints, except as documented Neurologic Neurologic: Reports systems reviewed and no addt'l complaints, except as documented Psychiatric Psychiatric: Reports systems reviewed and no addt'l complaints, except as documented Endocrine Endocrinology: Reports systems reviewed and no addt'l complaints, except as documented Hematologic/Lymphatic Hematologic/Lymphatic: Reports systems reviewed and no addt'l complaints, except as documented Allergic/Immunologic Allergic/Immunologic: Reports systems reviewed and no addt'l complaints, except as documented Physical Exam Const alert, oriented x3, no apparent distress, average body habitus, healthy appearing and well nourished HEENT normocephalic and moist oral mucous membranes Head and Scalp: atraumatic Eyes PERRL and EOMs intact bilaterally Neck full ROM Resp normal respiratory effort, no retractions and no use of accessory muscles Cardio regular rate and regular rhythm GI soft to palpation, non-tender and non-distended Extremity normal to inspection and full ROM Skin no rashes or lesions noted Neuro no focal motor deficits and no sensory deficits noted Psych mental status grossly normal, affect normal, speech normal and activity/motor behavior normal NST FHR Rate Baby A Baseline: 130 Variability:: Moderate Accelerations:: 15 x 15 Decelerations:: None NST Reactive:: Yes FHR Category:: Category I Uterine Activity:: None Assessment & Plan (1) Preeclampsia complicating hypertension: PLAN: Patient presents with acute worsening of blood pressures in the setting of chronic hypertension Blood pressures on arrival were 170s/110s She was treated with 20 mg of IV labetalol and her home Procardia XL was increased from 30 to 60 mg Magnesium sulfate was started for seizure prophylaxis Betamethasone was administered for lung maturity Preeclampsia labs were done and were normal Given preeclampsia at 32 weeks with also complicated by gestational diabetes, recommended maternal transport to [facility] for further evaluation and management. Patient discussed with Dr. Singh who accepted transport (2) Gestational diabetes: QUALIFIERS: Gestational diabetes mellitus control: oral hypoglycemic-controlled Trimester: first trimester Qualified Code(s): O24.415 - Gestational diabetes mellitus in , controlled by oral hypoglycemic drugs COMMENT: 09/19 @ 12 RLTCS, endocrine involved. insulin. weekly nst/yaneth. deliver at 38 due to chtn PLAN: Follows with endocrinology On NPH 25 units qhs Charges/Coding Visit Charges Office Visits / Consults: 19071 OV L4 Est Procedures Urinary/Genital [id number]: [id number] non-stress test Interp
--- NOTE | 2021-08-15 07:55 | NURSING ---
documented magnesium sulfate infused for chargeing purposes
== END 2021-08-07 18:00 | disposition home or self-care (01) ==
LOC: OPUS 12:34 → WPOUT 13:59 → WP 13:59
PROVIDERS: Obstetrics & Gynecology; PCP Family Medicine; Referring Provider Obstetrics & Gynecology; Visit Provider Obstetrics & Gynecology
DX: O11.3 Pre-existing hypertension with pre-eclampsia, third trimester (principal); O24.414 Gestational diabetes mellitus in pregnancy, insulin controlled; Z3A.34 34 weeks gestation of pregnancy; Z79.899 Other long term (current) drug therapy
CPT/HCPCS: 96365; 96366 ×4; 96372 ×2; 36415; 59050; 76816; 82565; 82570; 83615; 84156; 84450; 84460; 84550; 85027; 85461; 85610; 85730; 86900; 86901; 90384; 99218; G0378; J0702; J2790

== ENCOUNTER → 2021-08-14 12:10 | Outpatient (CLI) | payer SELFPAY ==
--- NOTE | 2021-08-14 12:12 | US_ITS ---
STUDY: SECOND AND THIRD TRIMESTER OBSTETRICAL ULTRASOUND - LIMITED REASON FOR EXAM: Female, 36 years old yaneth only LMP: 12/26/2020. PRIOR ULTRASOUND: Comparison is made with prior examination dated 08/07/2021. TECHNIQUE: Transabdominal TECHNICAL QUALITY: Adequate. FINDINGS: There is a single intrauterine fetus. The fetus is in a cephalic presentation. There is demonstrated cardiac activity with a heart rate of 144 bpm. There is a normal amniotic fluid volume. The largest amniotic fluid pocket measures 6.8 cm. The amniotic fluid index (YANETH) is 13.2 cm. The placenta is anterior in location and is not low lying. There are Grade 1 placental changes. BIOMETRY: Age by LMP: 33 weeks, 0 days. MEGHANA by LMP: 10/02/2021. US/OB Limited (No Biometrics) IMPRESSION: Normal amniotic fluid. Electronically Signed: Rito Torres MD at 15:36 EDT , Service support ,
== END ==
PROVIDERS: PCP Family Medicine; Referring Provider Obstetrics & Gynecology; Visit Provider Obstetrics & Gynecology
DX: Z87.59 Personal history of other complications of pregnancy, childbirth and the puerperium (principal)
CPT/HCPCS: 76815

== ENCOUNTER → 2021-08-22 12:10 | Outpatient (CLI) | payer SELFPAY ==
--- NOTE | 2021-08-22 12:14 | US_ITS ---
STUDY: SECOND AND THIRD TRIMESTER OBSTETRICAL ULTRASOUND - LIMITED REASON FOR EXAM: Female, 36 years old yaneth only LMP: 12/26/2020. PRIOR ULTRASOUND: Comparison is made with prior study dated 08/14/2021. TECHNIQUE: Transabdominal TECHNICAL QUALITY: Adequate. FINDINGS: There is a single intrauterine fetus. The fetus is in a cephalic presentation. There is demonstrated cardiac activity with a heart rate of 140 bpm. There is a normal amniotic fluid volume. The largest amniotic fluid pocket measures 3.1 cm. The amniotic fluid index (YANETH) is 10.5 cm. The placenta is anterior in location and is not low lying. There are Grade 1 placental changes. BIOMETRY: Age by LMP: 34 weeks, 1 days. MEGHANA by LMP: 10/02/2021. US/OB Limited (No Biometrics) IMPRESSION: Normal amniotic fluid. Electronically Signed: Rito Torres MD at 9:23 EDT , Service support ,
[2021-08-22 13:33] LABS: Absolute Lymphocyte Count 1.73 X10^3/uL (0.83-4.51); Absolute Neutrophil Count 8.1 X10^3/uL (2.0-7.7); Basophil# 0.03 X10^3/uL; Basophil% 0.3 % (0-1); Eosinophil# 0.14 X10^3/uL; Eosinophils% 1.3 % (0-5); Hematocrit 34.6 % (37-47); Hemoglobin 12.3 g/dL (12.0-15.0); Lymphocyte # 1.73 X10^3/ul (0.83-4.51); Lymphocyte % 16.1 % (19-41); Mean Corp Hgb Conc 35.5 g/dL (32-36); Mean Corpuscular Hgb 31.6 pg (27.0-32.0); Mean Corpuscular Volume 88.9 fL (81-99); Mean Platelet Vol. 9.7 fl (6.2-12.0); Monocyte# 0.69 X10^3/uL; Monocyte% 6.4 % (0-10); NRBC Flagged by Analyzer 0 % (0-5); Neutrophil % 75.5 % (47-70); Platelet Count 237 K/mm3 (150-450); RBC Distribution Width CV 13.1 % (11.6-14.6); RBC Distribution Width SD 42.4 fl (35.1-43.9); Red Blood Count 3.89 M/mm3 (4.2-5.4); White Blood Count 10.7 K/mm3 (4.4-11.0)
[2021-08-22 13:51] LABS: Protein, Urine (Random) < 6.0 mg/dL (<11.9)
[2021-08-22 14:36] LABS: ALB/GLOB Ratio 0.7 RATIO (0.9-2.4); AST(SGOT) 13 U/L (15-37); Alanine Aminotransfer ALT/SGPT 16 U/L (13-56); Albumin, Serum 2.8 g/dL (3.2-5.0); Alkaline Phosphatase 74 U/L (45-117); Anion Gap 8 (5-15); BUN 9 mg/dL (7-18); BUN/Creat Ratio 17.4 RATIO (10-20); Calcium,Total 9.4 mg/dL (8.5-10.1); Chloride 107 mmol/L (98-107); Creatinine, Serum 0.52 mg/dL (0.55-1.02); EST Glomerular Filtration Rate 144 mL/min (>60); Est Glom Filt Rate - Afr Amer 174 mL/min (>60); Globulin 3.8 g/dL (2.2-4.2); Glucose 90 mg/dL (74-106); Potassium 3.8 mmol/L (3.5-5.1); Protein, Total 6.6 g/dL (6.4-8.2); Sodium Level 140 mmol/L (136-145)
== END ==
PROVIDERS: Nurse Practitioner Women's Health; PCP Family Medicine; Referring Provider Obstetrics & Gynecology; Visit Provider Obstetrics & Gynecology
DX: O10.913 Unspecified pre-existing hypertension complicating pregnancy, third trimester (principal); O11.3 Pre-existing hypertension with pre-eclampsia, third trimester; Z3A.29 29 weeks gestation of pregnancy
CPT/HCPCS: 36415; 76815; 80053; 82570; 84156; 85025